=== PATIENT | female | born 1935 | race Caucasian/White ===

== ENCOUNTER 2017-07-16 09:21 | Inpatient (IN) | payer MEDICARE ==
[~2017-07-16] VITALS: Ht 175.3 cm; Wt 74.0 kg
[~2017-07-16 09:21] MED LIST: ALBU18HF INH; ASPI-515 PO; BUDE10.2 INH; GUAI5SYR PO; INSU100I18 SQ-INSULIN; LEVO500T47 PO
[2017-07-16 10:31] LABS: BASOPHILS # (AUTO) 0.01 x10^3/uL (0-0.1); BASOPHILS % (AUTO) 0 % (0-1); EOSINOPHILS # (AUTO) 0.11 x10^3/uL (0-0.4); EOSINOPHILS % (AUTO) 2 % (1-7); LYMPHOCYTES # (AUTO) 0.32 x10^3/uL (1-3.4); LYMPHOCYTES % (AUTO) 5 % (22-44); MD NO; MEAN CORPUSCULAR HEMOGLOBIN 31.1 pg (27.0-34.8); MEAN CORPUSCULAR HGB CONC 34.1 g/dL (32.4-35.8); MEAN CORPUSCULAR VOLUME 91.1 fL (80-100); MEAN PLATELET VOLUME 8.4 fL (7.4-10.4); MONOCYTES # (AUTO) 0.47 x10^3/uL (0.2-0.8); MONOCYTES % (AUTO) 7 % (2-9); NEUTROPHILS % (AUTO) 86 % (42-75); PLATELET COUNT 178 x10^3/uL (130-400); RED BLOOD COUNT 3.29 x10^6/uL (3.82-5.3); RED CELL DISTRIBUTION WIDTH 13.7 % (9.6-15.2)
[2017-07-16 10:33] LABS: INTERNATIONAL NORMALIZED RATIO 1.12 (0.93-1.1); PROTHROMBIN TIME 11.5 Seconds (9.6-11.5)
[2017-07-16 10:34] LABS: ALANINE AMINOTRANSFERASE 22 U/L (12-78); ALBUMIN 3.3 g/dL (3.4-5.0); ANION GAP 8 mmol/L (5-15); CALCIUM 8.2 mg/dL (8.5-10.1); CHLORIDE 103 mmol/L (98-107); CREATININE 6.67 mg/dL (0.55-1.02)
[2017-07-16 10:38] LABS: RAPID INFLUENZA A Negative (Negative); RAPID INFLUENZA B Negative (Negative)
[2017-07-16 10:38] LABS: ALKALINE PHOSPHATASE 66 U/L (45-117); BILIRUBIN,TOTAL 0.9 mg/dL (0.2-1.0); TOTAL PROTEIN 7.2 g/dL (6.4-8.2); TROPONIN I < 0.015 ng/mL (0.000-0.045)
[2017-07-16] MEDS ORDERED: CEFTRIAXONE PMX 1GM/50ML 50 ML IVPB ONE (11:00)
[2017-07-16] MEDS ORDERED: CEFTRIAXONE PMX 1GM/50ML 50 ML ONE (11:21)
[2017-07-16] MEDS ORDERED: NAPR220C2 PO (11:43)
[2017-07-16] MEDS ORDERED: PLEASE ENTER HEIGHT AND WEIGHT MC SCH (12:00)
[2017-07-16] MEDS ORDERED: ONDANSETRON 2MG/ML, 2ML IVPush PRN (13:00)
[2017-07-16] MEDS ORDERED: ACETAMINOPHEN 325 MG TABLET PO PRN (13:00)
[2017-07-16 14:00] VITALS: BP 141/71
[2017-07-16 14:32] VITALS: BP 141/71
[2017-07-16] MEDS: HEPARIN 5,000 UNITS/ML, 1ML SQ SCH (15:21)
[2017-07-16 16:22] LABS: TROPONIN I < 0.015 ng/mL (0.000-0.045)
[2017-07-16 18:34] VITALS: BP 122/64
[2017-07-17] MEDS: HEPARIN 5,000 UNITS/ML, 1ML SQ SCH ×3 (00:04→16:33)
[2017-07-17 00:49] VITALS: BP 151/69
[2017-07-17 06:14] LABS: BASOPHILS # (AUTO) 0.05 x10^3/uL (0-0.1); BASOPHILS % (AUTO) 1 % (0-1); EOSINOPHILS # (AUTO) 0.15 x10^3/uL (0-0.4); EOSINOPHILS % (AUTO) 3 % (1-7); LYMPHOCYTES # (AUTO) 0.36 x10^3/uL (1-3.4); LYMPHOCYTES % (AUTO) 7 % (22-44); MD NO; MEAN CORPUSCULAR HEMOGLOBIN 30.9 pg (27.0-34.8); MEAN CORPUSCULAR HGB CONC 34.4 g/dL (32.4-35.8); MEAN CORPUSCULAR VOLUME 89.9 fL (80-100); MEAN PLATELET VOLUME 8.1 fL (7.4-10.4); MONOCYTES # (AUTO) 0.46 x10^3/uL (0.2-0.8); MONOCYTES % (AUTO) 9 % (2-9); NEUTROPHILS # (AUTO) 4.36 x10^3/uL (1.8-6.8); NEUTROPHILS % (AUTO) 81 % (42-75); PLATELET COUNT 178 x10^3/uL (130-400); RED CELL DISTRIBUTION WIDTH 13.7 % (9.6-15.2)
[2017-07-17 06:29] LABS: CHLORIDE 101 mmol/L (98-107)
[2017-07-17 06:53] LABS: ALANINE AMINOTRANSFERASE 19 U/L (12-78); ALBUMIN 3.2 g/dL (3.4-5.0); ALKALINE PHOSPHATASE 62 U/L (45-117); ANION GAP 8 mmol/L (5-15); BILIRUBIN,TOTAL 0.7 mg/dL (0.2-1.0); CALCIUM 8.5 mg/dL (8.5-10.1); CREATININE 4.31 mg/dL (0.55-1.02); TOTAL PROTEIN 7.1 g/dL (6.4-8.2)
[2017-07-17 06:59] VITALS: BP 125/57
[2017-07-17 13:35] VITALS: BP 128/60
[2017-07-17] MEDS: DOCUSATE 100 MG CAPSULE PO PRN (16:32)
[2017-07-17 20:51] VITALS: BP 121/61
[2017-07-18 00:26] VITALS: BP 124/55
[2017-07-18] MEDS: HEPARIN 5,000 UNITS/ML, 1ML SQ SCH ×3 (00:57→17:40)
[2017-07-18 06:47] VITALS: BP 121/57
[2017-07-18 14:14] VITALS: BP 118/74
[2017-07-18] MEDS: DOCUSATE 100 MG CAPSULE PO PRN (15:45)
[2017-07-18 20:08] VITALS: BP 118/61
[2017-07-19] MEDS: HEPARIN 5,000 UNITS/ML, 1ML SQ SCH ×2 (00:10→08:41)
[2017-07-19 00:45] VITALS: BP 129/62
[2017-07-19 07:10] VITALS: BP 118/49
[2017-07-19 12:34] VITALS: BP 142/63
== END 2017-07-19 16:09 | DRG 682 ==
LOC: ED 10:20 → EDIP 11:19 → 4WST 13:45
PROVIDERS: ADMIT Hospitalist; ATTEND Internal Medicine
PROC: 5A1D70Z Performance of Urinary Filtration, Intermittent, Less than 6 Hours Per Day (ICD-10-PCS; 2017-07-16)
PROC: 5A1D70Z Performance of Urinary Filtration, Intermittent, Less than 6 Hours Per Day (ICD-10-PCS; principal; 2017-07-18)
DX: I12.0 Hypertensive chronic kidney disease with stage 5 chronic kidney disease or end stage renal disease (principal); N18.6 End stage renal disease; J81.1 Chronic pulmonary edema; J18.1 Lobar pneumonia, unspecified organism; E11.22 Type 2 diabetes mellitus with diabetic chronic kidney disease; E87.70 Fluid overload, unspecified; I48.2 Chronic atrial fibrillation; E44.1 Mild protein-calorie malnutrition; N25.0 Renal osteodystrophy; J44.0 Chronic obstructive pulmonary disease with (acute) lower respiratory infection; D63.1 Anemia in chronic kidney disease; E78.5 Hyperlipidemia, unspecified; K21.9 Gastro-esophageal reflux disease without esophagitis; R09.02 Hypoxemia; Z82.49 Family history of ischemic heart disease and other diseases of the circulatory system; Z87.891 Personal history of nicotine dependence; Z91.15 Patient's noncompliance with renal dialysis; Z91.19 Patient's noncompliance with other medical treatment and regimen; Z99.2 Dependence on renal dialysis; Z99.81 Dependence on supplemental oxygen; Z68.24 Body mass index [BMI] 24.0-24.9, adult
CPT/HCPCS: 36415; 71010; 80053; 83880; 84145; 84443; 84484; 85025; 85610; 85730; 86704; 86706; 87040; 87340; 87400; 93005; 93306; 99285; J0696; J1644

== ENCOUNTER 2017-08-13 14:35 | Emergency (ER) | payer MEDICARE ==
[~2017-08-13] VITALS: Ht 175.3 cm; Wt 77.1 kg
[~2017-08-13 14:35] MED LIST changes: +NAPR220C2 PO
[2017-08-13] MEDS ORDERED: IBUPROFEN 200 MG TABLET PO ONE (15:30)
[2017-08-13] MEDS ORDERED: IBUPROFEN 200 MG TABLET ONE (15:55)
[2017-08-13 17:41] VITALS: BP 138/60
== END 2017-08-13 17:44 | disposition home or self-care (01) ==
LOC: ED 17:38
DX: S16.1XXA Strain of muscle, fascia and tendon at neck level, initial encounter (principal); S80.01XA Contusion of right knee, initial encounter; E78.00 Pure hypercholesterolemia, unspecified; K21.9 Gastro-esophageal reflux disease without esophagitis; I48.91 Unspecified atrial fibrillation; Z90.49 Acquired absence of other specified parts of digestive tract; V49.88XA Car occupant (driver) (passenger) injured in other specified transport accidents, initial encounter; Y93.89 Activity, other specified; Y92.488 Other paved roadways as the place of occurrence of the external cause; Y99.8 Other external cause status
CPT/HCPCS: 72050; 72125; 99284

== ENCOUNTER 2018-01-01 22:28 | Inpatient (IN) | payer MEDICARE ==
[~2018-01-01] VITALS: Ht 175.3 cm; Wt 81.1 kg
[2018-01-01 23:38] LABS: BASOPHILS # (AUTO) 0.03 x10^3/uL (0-0.1); BASOPHILS % (AUTO) 1 % (0-1); EOSINOPHILS # (AUTO) 0.08 x10^3/uL (0-0.4); EOSINOPHILS % (AUTO) 2 % (1-7); LYMPHOCYTES # (AUTO) 0.44 x10^3/uL (1-3.4); LYMPHOCYTES % (AUTO) 11 % (22-44); MD NO; MEAN CORPUSCULAR HEMOGLOBIN 31.1 pg (27.0-34.8); MEAN CORPUSCULAR HGB CONC 33.8 g/dL (32.4-35.8); MEAN CORPUSCULAR VOLUME 91.9 fL (80-100); MEAN PLATELET VOLUME 8.3 fL (7.4-10.4); MONOCYTES # (AUTO) 0.41 x10^3/uL (0.2-0.8); MONOCYTES % (AUTO) 11 % (2-9); NEUTROPHILS % (AUTO) 75 % (42-75); PLATELET COUNT 128 x10^3/uL (130-400); RED BLOOD COUNT 3.53 x10^6/uL (3.82-5.3); RED CELL DISTRIBUTION WIDTH 15.8 % (9.6-15.2)
[2018-01-01 23:47] LABS: ALANINE AMINOTRANSFERASE 26 U/L (12-78); ALBUMIN 3.8 g/dL (3.4-5.0); ANION GAP 10 mmol/L (5-15); CALCIUM 8.4 mg/dL (8.5-10.1); CHLORIDE 107 mmol/L (98-107); CREATININE 6.05 mg/dL (0.55-1.02)
[2018-01-01 23:51] LABS: ALKALINE PHOSPHATASE 61 U/L (45-117); TOTAL PROTEIN 6.9 g/dL (6.4-8.2); TROPONIN I < 0.015 ng/mL (0.000-0.045)
[2018-01-01 23:57] LABS: BILIRUBIN,TOTAL 0.6 mg/dL (0.2-1.0)
[2018-01-01 23:59] LABS: INTERNATIONAL NORMALIZED RATIO 1.08 (0.93-1.1); PROTHROMBIN TIME 11.1 Seconds (9.6-11.5)
[2018-01-02] VITALS (8 sets, daily range): BP systolic 99–183; BP diastolic 59–103
[2018-01-02] MEDS ORDERED: ACETAMINOPHEN 325 MG TABLET PO PRN (02:30)
[2018-01-02] MEDS ORDERED: BISACODYL 10 MG SUPP PR PRN (02:30)
[2018-01-02] MEDS ORDERED: OXYcodone IR 5MG TABLET PO PRN (02:30)
[2018-01-02] MEDS ORDERED: ONDANSETRON ODT 4 MG PO PRN (02:30)
[2018-01-02] MEDS ORDERED: DOCUSATE 100 MG CAPSULE PO PRN (02:30)
[2018-01-02] MEDS ORDERED: hydrALAzine 20 MG/ML, 1ML IVPush PRN (02:30)
[2018-01-02] MEDS ORDERED: ONDANSETRON 2MG/ML, 2ML IVPush PRN (02:30)
[2018-01-02] MEDS ORDERED: POLYETHYLENE GLYCOL 17 GM PACKET PO PRN (02:30)
[2018-01-02] MEDS: INSULIN LISPRO 100 UNITS/ML, PEN SQ-INSULIN SCH ×5 (02:43→21:03)
[2018-01-02] MEDS: HEPARIN 5,000 UNITS/ML, 1ML SQ SCH ×3 (02:53→21:03)
[2018-01-02 03:23] LABS: FREE T4 (FREE THYROXINE) 1.08 ng/dL (0.76-1.46); THYROID STIMULATING HORMONE 2.4 mIU/L (0.358-3.740)
[2018-01-02 03:24] LABS: HEMOGLOBIN A1C 5.9 % (4.2-6.3)
[2018-01-02 05:58] LABS: TROPONIN I < 0.015 ng/mL (0.000-0.045)
[2018-01-02] MEDS: ASPIRIN 325 MG TABLET EC PO SCH (06:11)
[2018-01-02 11:38] LABS: TROPONIN I < 0.015 ng/mL (0.000-0.045)
[2018-01-03 00:29] VITALS: BP 109/53
[2018-01-03 05:11] LABS: BASOPHILS # (AUTO) 0.03 x10^3/uL (0-0.1); BASOPHILS % (AUTO) 1 % (0-1); EOSINOPHILS # (AUTO) 0.07 x10^3/uL (0-0.4); EOSINOPHILS % (AUTO) 2 % (1-7); LYMPHOCYTES # (AUTO) 0.39 x10^3/uL (1-3.4); LYMPHOCYTES % (AUTO) 9 % (22-44); MD NO; MEAN CORPUSCULAR HEMOGLOBIN 31.1 pg (27.0-34.8); MEAN CORPUSCULAR HGB CONC 33.7 g/dL (32.4-35.8); MEAN CORPUSCULAR VOLUME 92.3 fL (80-100); MEAN PLATELET VOLUME 8.4 fL (7.4-10.4); MONOCYTES # (AUTO) 0.41 x10^3/uL (0.2-0.8); MONOCYTES % (AUTO) 10 % (2-9); NEUTROPHILS # (AUTO) 3.35 x10^3/uL (1.8-6.8); NEUTROPHILS % (AUTO) 79 % (42-75); PLATELET COUNT 129 x10^3/uL (130-400); RED BLOOD COUNT 3.45 x10^6/uL (3.82-5.3); RED CELL DISTRIBUTION WIDTH 15.2 % (9.6-15.2)
[2018-01-03] MEDS: ASPIRIN 325 MG TABLET EC PO SCH (05:12)
[2018-01-03] MEDS: HEPARIN 5,000 UNITS/ML, 1ML SQ SCH ×2 (05:12→11:44)
[2018-01-03 05:17] LABS: ALBUMIN 3.5 g/dL (3.4-5.0); ANION GAP 8 mmol/L (5-15); CALCIUM 8.4 mg/dL (8.5-10.1); CHLORIDE 102 mmol/L (98-107); CHOLESTEROL, TOTAL 126 mg/dL (140-239); TRIGLYCERIDES 90 mg/dL (50-200); VLDL CHOLESTEROL 18 mg/dL (0-25)
[2018-01-03 05:24] LABS: % IRON SATURATION 18 % (20-55); ALANINE AMINOTRANSFERASE 20 U/L (12-78); ALKALINE PHOSPHATASE 59 U/L (45-117); BILIRUBIN,TOTAL 0.7 mg/dL (0.2-1.0); CHOL/HDL RATIO 2.7; CREATININE 3.75 mg/dL (0.55-1.02); HDL CHOL % 37 % (28-40); HDL CHOLESTEROL (DIRECT) 47 mg/dL (40-60); IRON LEVEL 36 mcg/dL (50-170); LDL CHOLESTEROL,CALCULATED 61 mg/dL (54-169); LDL/HDL RATIO 1.3 (0.5-3.0); TOTAL IRON BINDING CAPACITY 201 mcg/dL (250-450); TOTAL PROTEIN 6.5 g/dL (6.4-8.2)
[2018-01-03] MEDS: INSULIN LISPRO 100 UNITS/ML, PEN SQ-INSULIN SCH ×3 (07:00→16:00)
[2018-01-03 07:13] VITALS: BP 155/65
[2018-01-03 13:31] VITALS: BP 117/62
== END 2018-01-03 20:15 | disposition home or self-care (01) | DRG 640 ==
LOC: ED 23:59 → EDIP 01-02 01:59 → 5SO 01-02 02:04
PROVIDERS: ADMIT Internal Medicine; ATTEND Internal Medicine
PROC: 5A1D70Z Performance of Urinary Filtration, Intermittent, Less than 6 Hours Per Day (ICD-10-PCS; principal; 2018-01-02)
DX: E87.70 Fluid overload, unspecified (principal); N18.6 End stage renal disease; D68.69 Other thrombophilia; I12.0 Hypertensive chronic kidney disease with stage 5 chronic kidney disease or end stage renal disease; E87.1 Hypo-osmolality and hyponatremia; E11.22 Type 2 diabetes mellitus with diabetic chronic kidney disease; I48.91 Unspecified atrial fibrillation; K21.9 Gastro-esophageal reflux disease without esophagitis; Z91.15 Patient's noncompliance with renal dialysis; D63.1 Anemia in chronic kidney disease; E78.00 Pure hypercholesterolemia, unspecified; J44.9 Chronic obstructive pulmonary disease, unspecified; R07.2 Precordial pain; N25.0 Renal osteodystrophy; Z79.82 Long term (current) use of aspirin; Z87.891 Personal history of nicotine dependence; Z90.710 Acquired absence of both cervix and uterus; Z91.19 Patient's noncompliance with other medical treatment and regimen; Z99.2 Dependence on renal dialysis; Z99.81 Dependence on supplemental oxygen; Z90.49 Acquired absence of other specified parts of digestive tract; E11.40 Type 2 diabetes mellitus with diabetic neuropathy, unspecified
CPT/HCPCS: 36415; 71045; 80053; 80061; 82306; 82728; 82962; 83036; 83540; 83550; 83735; 83880; 83970; 84100; 84439; 84443; 84484; 84550; 85025; 85610; 85730; 93005; 99285; J1644; J0360

== ENCOUNTER 2018-01-06 10:43 | Inpatient (IN) | payer MEDICARE ==
[~2018-01-06] VITALS: Ht 175.3 cm; Wt 76.5 kg
[2018-01-06] MEDS ORDERED: ALBUTEROL/IPRATROPIUM 2.5MG/0.5MG, 3 ML NPPB SCH (12:30)
[2018-01-06] MEDS ORDERED: ALBUTEROL/IPRATROPIUM 2.5MG/0.5MG, 3 ML ONE (12:34)
[2018-01-06 13:02] LABS: BASOPHILS # (AUTO) 0.01 x10^3/uL (0-0.1); BASOPHILS % (AUTO) 0 % (0-1); EOSINOPHILS # (AUTO) 0.05 x10^3/uL (0-0.4); EOSINOPHILS % (AUTO) 1 % (1-7); LYMPHOCYTES # (AUTO) 0.32 x10^3/uL (1-3.4); LYMPHOCYTES % (AUTO) 7 % (22-44); MD NO; MEAN CORPUSCULAR HEMOGLOBIN 30.3 pg (27.0-34.8); MEAN CORPUSCULAR HGB CONC 33.1 g/dL (32.4-35.8); MEAN CORPUSCULAR VOLUME 91.3 fL (80-100); MEAN PLATELET VOLUME 8.5 fL (7.4-10.4); MONOCYTES # (AUTO) 0.38 x10^3/uL (0.2-0.8); MONOCYTES % (AUTO) 8 % (2-9); NEUTROPHILS # (AUTO) 3.94 x10^3/uL (1.8-6.8); NEUTROPHILS % (AUTO) 84 % (42-75); PLATELET COUNT 130 x10^3/uL (130-400); RED BLOOD COUNT 3.69 x10^6/uL (3.82-5.3); RED CELL DISTRIBUTION WIDTH 15.6 % (9.6-15.2)
[2018-01-06 13:12] LABS: ALBUMIN 3.9 g/dL (3.4-5.0); ANION GAP 7 mmol/L (5-15); CALCIUM 8.9 mg/dL (8.5-10.1); CHLORIDE 100 mmol/L (98-107)
[2018-01-06 13:17] LABS: CREATININE 4.37 mg/dL (0.55-1.02)
[2018-01-06] MEDS ORDERED: GUAIFENESIN/DM 200-20MG, 10ML UDC PO PRN (15:30)
[2018-01-06] MEDS ORDERED: ACETAMINOPHEN 325 MG TABLET PO PRN (15:30)
[2018-01-06] MEDS ORDERED: AZITHROMYCIN 500 MG TABLET PO ONE (15:30)
[2018-01-06] MEDS ORDERED: ONDANSETRON 2MG/ML, 2ML IVPush PRN (15:30)
[2018-01-06] MEDS ORDERED: GLUCAGON 1 MG IM PRN (15:30)
[2018-01-06] MEDS ORDERED: DEXTROSE 4 GM TAB.CHEW PO PRN (15:30)
[2018-01-06] MEDS ORDERED: LABETALOL 5MG/ML, 20ML IVPush PRN (15:30)
[2018-01-06] MEDS ORDERED: ONDANSETRON ODT 4 MG PO PRN (15:30)
[2018-01-06] MEDS ORDERED: DEXTROSE 50%, 50ML SYRINGE IVPush PRN (15:30)
[2018-01-06] MEDS ORDERED: TRAZODONE 50MG TABLET PO PRN (15:30)
[2018-01-06] MEDS: INSULIN LISPRO 100 UNITS/ML, PEN SQ-INSULIN SCH ×3 (16:00→22:52)
[2018-01-06] MEDS ORDERED: AZITHROMYCIN 500 MG TABLET ONE (17:20)
[2018-01-06 17:51] VITALS: BP 164/74
[2018-01-06 20:00] VITALS: BP 148/65
[2018-01-06] MEDS ORDERED: ALBUTEROL/IPRATROPIUM 2.5MG/0.5MG, 3 ML NPPB PRN (20:00)
[2018-01-06] MEDS: SODIUM CHLORIDE FLUSH 10ML SYR IVF SCH (22:15)
[2018-01-06] MEDS: methylPREDNISolone SOD SUCC 40 MG/ML IVPush SCH (22:15)
[2018-01-07 02:00] VITALS: BP 166/72
[2018-01-07] MEDS: ASPIRIN 325 MG TABLET EC PO SCH (05:13)
[2018-01-07 06:04] LABS: BASOPHILS % (AUTO) 0 % (0-1); EOSINOPHILS % (AUTO) 0 % (1-7); LYMPHOCYTES # (AUTO) 0.17 x10^3/uL (1-3.4); LYMPHOCYTES % (AUTO) 6 % (22-44); MD NO; MEAN CORPUSCULAR HEMOGLOBIN 30.2 pg (27.0-34.8); MEAN CORPUSCULAR HGB CONC 33.3 g/dL (32.4-35.8); MEAN CORPUSCULAR VOLUME 90.6 fL (80-100); MEAN PLATELET VOLUME 8.4 fL (7.4-10.4); MONOCYTES # (AUTO) 0.06 x10^3/uL (0.2-0.8); MONOCYTES % (AUTO) 2 % (2-9); NEUTROPHILS # (AUTO) 2.78 x10^3/uL (1.8-6.8); NEUTROPHILS % (AUTO) 92 % (42-75); PLATELET COUNT 137 x10^3/uL (130-400); RED BLOOD COUNT 3.62 x10^6/uL (3.82-5.3); RED CELL DISTRIBUTION WIDTH 15.5 % (9.6-15.2)
[2018-01-07 06:13] LABS: CALCIUM 9.1 mg/dL (8.5-10.1); CHLORIDE 101 mmol/L (98-107)
[2018-01-07 06:18] LABS: ALANINE AMINOTRANSFERASE 36 U/L (12-78); ALBUMIN 3.6 g/dL (3.4-5.0); ALKALINE PHOSPHATASE 66 U/L (45-117); ANION GAP 9 mmol/L (5-15); BILIRUBIN,TOTAL 0.7 mg/dL (0.2-1.0); CREATININE 5.02 mg/dL (0.55-1.02)
[2018-01-07 06:53] LABS: HEMOGLOBIN A1C 5.6 % (4.2-6.3)
[2018-01-07 07:40] VITALS: BP 139/66
[2018-01-07] MEDS: methylPREDNISolone SOD SUCC 40 MG/ML IVPush SCH ×2 (09:01→20:48)
[2018-01-07] MEDS: SODIUM CHLORIDE FLUSH 10ML SYR IVF SCH ×2 (09:02→20:48)
[2018-01-07] MEDS: INSULIN LISPRO 100 UNITS/ML, PEN SQ-INSULIN SCH ×4 (09:02→20:48)
[2018-01-07 15:09] VITALS: BP 130/63
[2018-01-07 19:16] VITALS: BP 129/62
[2018-01-08 02:32] VITALS: BP 149/69
[2018-01-08] MEDS: ASPIRIN 325 MG TABLET EC PO SCH (05:05)
[2018-01-08 07:01] VITALS: BP 159/67
[2018-01-08] MEDS: INSULIN LISPRO 100 UNITS/ML, PEN SQ-INSULIN SCH ×4 (07:58→20:45)
[2018-01-08] MEDS: SODIUM CHLORIDE FLUSH 10ML SYR IVF SCH ×2 (07:58→20:44)
[2018-01-08] MEDS: methylPREDNISolone SOD SUCC 40 MG/ML IVPush SCH ×2 (07:58→20:44)
[2018-01-08] MEDS: AZITHROMYCIN 500 MG TABLET PO SCH (11:34)
[2018-01-08 11:43] LABS: ALBUMIN 3.6 g/dL (3.4-5.0); ANION GAP 10 mmol/L (5-15); CALCIUM 8.2 mg/dL (8.5-10.1); CHLORIDE 98 mmol/L (98-107)
[2018-01-08 11:47] LABS: ALANINE AMINOTRANSFERASE 36 U/L (12-78); ALKALINE PHOSPHATASE 61 U/L (45-117); BILIRUBIN,TOTAL 0.4 mg/dL (0.2-1.0); CREATININE 6.19 mg/dL (0.55-1.02); TOTAL PROTEIN 6.6 g/dL (6.4-8.2)
[2018-01-08 12:12] VITALS: BP 156/65
[2018-01-08 12:16] LABS: MEAN CORPUSCULAR HEMOGLOBIN 30.3 pg (27.0-34.8); MEAN CORPUSCULAR HGB CONC 33.2 g/dL (32.4-35.8); MEAN CORPUSCULAR VOLUME 91.1 fL (80-100); MEAN PLATELET VOLUME 8.8 fL (7.4-10.4); PLATELET COUNT 152 x10^3/uL (130-400); RED BLOOD COUNT 3.49 x10^6/uL (3.82-5.3); RED CELL DISTRIBUTION WIDTH 15.4 % (9.6-15.2)
[2018-01-08 12:26] LABS: BASOPHILS % (AUTO) 0 % (0-1); EOSINOPHILS % (AUTO) 0 % (1-7); LYMPHOCYTES # (AUTO) 0.17 x10^3/uL (1-3.4); LYMPHOCYTES % (AUTO) 3 % (22-44); MD SCAN; MONOCYTES # (AUTO) 0.18 x10^3/uL (0.2-0.8); MONOCYTES % (AUTO) 3 % (2-9); NEUTROPHILS # (AUTO) 6.14 x10^3/uL (1.8-6.8); NEUTROPHILS % (AUTO) 95 % (42-75)
[2018-01-08 19:59] VITALS: BP 158/73
[2018-01-09 01:19] VITALS: BP 156/74
[2018-01-09] MEDS: ASPIRIN 325 MG TABLET EC PO SCH (05:33)
[2018-01-09 08:56] LABS: ANION GAP 11 mmol/L (5-15); CALCIUM 8.2 mg/dL (8.5-10.1); CHLORIDE 99 mmol/L (98-107); CREATININE 6.55 mg/dL (0.55-1.02)
[2018-01-09 09:20] VITALS: BP 145/76
[2018-01-09] MEDS: methylPREDNISolone SOD SUCC 40 MG/ML IVPush SCH ×2 (09:40→20:51)
[2018-01-09] MEDS: AZITHROMYCIN 500 MG TABLET PO SCH (09:40)
[2018-01-09] MEDS: INSULIN LISPRO 100 UNITS/ML, PEN SQ-INSULIN SCH ×4 (09:40→20:52)
[2018-01-09] MEDS: SODIUM CHLORIDE FLUSH 10ML SYR IVF SCH ×2 (09:41→20:52)
[2018-01-09] MEDS ORDERED: ARANESP 100 MCG/ML **ESRD SQ SCH (11:00)
[2018-01-09] MEDS: CALCIUM ACETATE 667 MG CAPSULE PO SCH ×3 (12:24→20:52)
[2018-01-09 13:55] VITALS: BP 129/71
[2018-01-09] MEDS ORDERED: LIDOCAINE/PRILOCAINE CRM W/TEG 5GM TP ONE (17:30)
[2018-01-09 19:32] VITALS: BP 146/76
[2018-01-09 21:00] VITALS: BP 152/68
[2018-01-10 00:37] VITALS: BP 166/75
[2018-01-10] MEDS: ASPIRIN 325 MG TABLET EC PO SCH (05:27)
[2018-01-10 07:27] VITALS: BP 133/74
[2018-01-10] MEDS: CALCIUM ACETATE 667 MG CAPSULE PO SCH ×3 (08:31→21:13)
[2018-01-10] MEDS: methylPREDNISolone SOD SUCC 40 MG/ML IVPush SCH (08:31)
[2018-01-10] MEDS: AZITHROMYCIN 500 MG TABLET PO SCH (08:31)
[2018-01-10] MEDS: SODIUM CHLORIDE FLUSH 10ML SYR IVF SCH ×2 (08:32→21:00)
[2018-01-10] MEDS: INSULIN LISPRO 100 UNITS/ML, PEN SQ-INSULIN SCH ×4 (08:34→21:13)
[2018-01-10 14:29] VITALS: BP 157/80
[2018-01-10 20:36] VITALS: BP 164/84
[2018-01-11 00:24] VITALS: BP 177/68
[2018-01-11] MEDS: ASPIRIN 325 MG TABLET EC PO SCH (06:31)
[2018-01-11] MEDS: INSULIN LISPRO 100 UNITS/ML, PEN SQ-INSULIN SCH ×2 (07:00→12:15)
[2018-01-11 08:01] VITALS: BP 170/76
[2018-01-11] MEDS: AZITHROMYCIN 500 MG TABLET PO SCH (08:08)
[2018-01-11] MEDS: CALCIUM ACETATE 667 MG CAPSULE PO SCH (08:09)
[2018-01-11] MEDS: SODIUM CHLORIDE FLUSH 10ML SYR IVF SCH (08:09)
[2018-01-11] MEDS ORDERED: AZIT500T5 PO (11:55)
[2018-01-11] MEDS ORDERED: ASPI-650 PO (11:55)
[2018-01-11] MEDS ORDERED: PRED20TA PO (11:55)
[2018-01-11] MEDS ORDERED: IPRA3AMP INH (11:55)
[2018-01-11] MEDS ORDERED: CALC667C PO (11:55)
[2018-01-11 13:30] VITALS: BP 168/77
== END 2018-01-11 17:00 | disposition home or self-care (01) | DRG 193 ==
LOC: ED 14:36 → EDIP 14:44 → 3NE 15:11 → 4EST 15:27 → 4WST 18:28
PROVIDERS: ADMIT Internal Medicine; ATTEND Internal Medicine
PROC: 5A1D70Z Performance of Urinary Filtration, Intermittent, Less than 6 Hours Per Day (ICD-10-PCS; principal; 2018-01-09)
DX: J15.9 Unspecified bacterial pneumonia (principal); N18.6 End stage renal disease; E87.1 Hypo-osmolality and hyponatremia; J44.0 Chronic obstructive pulmonary disease with (acute) lower respiratory infection; J44.1 Chronic obstructive pulmonary disease with (acute) exacerbation; J96.10 Chronic respiratory failure, unspecified whether with hypoxia or hypercapnia; R62.7 Adult failure to thrive; D63.8 Anemia in other chronic diseases classified elsewhere; E78.5 Hyperlipidemia, unspecified; K21.9 Gastro-esophageal reflux disease without esophagitis; D63.1 Anemia in chronic kidney disease; E11.22 Type 2 diabetes mellitus with diabetic chronic kidney disease; E11.42 Type 2 diabetes mellitus with diabetic polyneuropathy; E78.00 Pure hypercholesterolemia, unspecified; I48.2 Chronic atrial fibrillation; Z82.49 Family history of ischemic heart disease and other diseases of the circulatory system; Z99.2 Dependence on renal dialysis; Z99.81 Dependence on supplemental oxygen; Z90.710 Acquired absence of both cervix and uterus; Z90.49 Acquired absence of other specified parts of digestive tract
CPT/HCPCS: 36415; 71046; 80048; 80053; 82040; 82962; 83036; 83735; 83880; 84100; 85025; 87040; 93005; 94640; 99285; J0882; J2405; J7620; J1815; J2920; J7512

== ENCOUNTER 2018-08-10 18:29 | Inpatient (IN) | payer MEDICARE ==
[~2018-08-10] VITALS: Ht 175.3 cm; Wt 73.8 kg
[~2018-08-10 18:29] MED LIST changes: +ASPI-650 PO; +AZIT500T5 PO; +CALC667C PO; +IPRA3AMP30 INH; +PRED20TA PO
--- NOTE | 2018-08-10 18:59 | NUR ---
FIRST CONTACT WITH PT: PRESENTS TO ED WITH C/O SOB X 1 MONTH; DENIES HX OF COPD AND/OR ASTHMA. PT. REPORTS "I FEEL LIKE I HAVE NO ENERGY." PT. IS A DIALYSIS PT. WITH FISTULA TO LEFT ARM; SHE STATES "I DON'T TAKE ANY MEDICATIONS WHEN I AM AT HOME BECAUSE I AM ALLERGIC TO ALL GENERIC MEDICATIONS AND THE DR.'S DON'T LISTEN. SON AT BS FOR SUPPORT. CHEST X-RAY HAS BEEN COMPLETED, LAB AT BS FOR BLOOD DRAW. PT. PLACED ON CONTINUOUS PULSE OX, B/P, AND HEART MONITORS. CALL LIGHT IN REACH. DR. DURAN AT BS TO EVAL PT. AT THIS TIME.
[2018-08-10 19:13] LABS: BASOPHILS # (AUTO) 0.02 x10^3/uL (0-0.1); BASOPHILS % (AUTO) 0 % (0-1); EOSINOPHILS # (AUTO) 0.07 x10^3/uL (0-0.4); EOSINOPHILS % (AUTO) 1 % (1-7); LYMPHOCYTES # (AUTO) 0.45 x10^3/uL (1-3.4); LYMPHOCYTES % (AUTO) 9 % (22-44); MD NO; MEAN CORPUSCULAR HEMOGLOBIN 29.3 pg (27.0-34.8); MEAN CORPUSCULAR VOLUME 88.9 fL (80-100); MEAN PLATELET VOLUME 8.6 fL (7.4-10.4); MONOCYTES # (AUTO) 0.36 x10^3/uL (0.2-0.8); MONOCYTES % (AUTO) 7 % (2-9); NEUTROPHILS # (AUTO) 4.34 x10^3/uL (1.8-6.8); NEUTROPHILS % (AUTO) 83 % (42-75); PLATELET COUNT 173 x10^3/uL (130-400); RED BLOOD COUNT 4.11 x10^6/uL (3.82-5.3); RED CELL DISTRIBUTION WIDTH 16.1 % (9.6-15.2)
[2018-08-10 19:20] LABS: ALANINE AMINOTRANSFERASE 43 U/L (12-78); ALBUMIN 3.6 g/dL (3.4-5.0); ANION GAP 8 mmol/L (5-15); CALCIUM 8.5 mg/dL (8.5-10.1); CHLORIDE 106 mmol/L (98-107); CREATININE 5.94 mg/dL (0.55-1.02)
[2018-08-10] MEDS ORDERED: FUROSEMIDE 40 MG/4 ML IVPush ONE (19:30)
[2018-08-10] MEDS ORDERED: SODIUM CHLORIDE FLUSH 10ML SYR IVF ONE (19:30)
[2018-08-10] MEDS ORDERED: FUROSEMIDE 40 MG/4 ML ONE (19:35)
[2018-08-10 19:36] LABS: ALKALINE PHOSPHATASE 68 U/L (45-117); BILIRUBIN,TOTAL 0.7 mg/dL (0.2-1.0); TOTAL PROTEIN 6.8 g/dL (6.4-8.2)
--- NOTE | 2018-08-10 19:47 | NUR ---
PT. SON LEAVING ED AT THIS TIME. PT. SON ALSO REPORTED TO THIS RN THAT PT. DOESN'T TAKE ANY MEDICAIONS AT HOME. IV WAS ESTABLISHED AND PT. MEDCIATED PER SEP. PT. ASSISTED TO BS COMMODE FOR UA AT THIS TIME.
[2018-08-10] MEDS ORDERED: PLEASE ENTER WEIGHT MC SCH (20:00)
--- NOTE | 2018-08-10 20:01 | NUR ---
[facility] PT. ABLE TO VOID 100ML OF CLEAR YELLOW URINE; CLEAN CATCH URINE SAMPLE SENT TO LAB. ALL MONITORS REPLACED. PT. EDUCATED ON USE OF CALL LIGHT. ALL SAFETY MEASRUES OBSERVED.
[2018-08-10 20:39] LABS: MICROSCOPIC AUTO
[2018-08-10 20:41] LABS: CULTURE INDICATED? YES
[2018-08-10] MEDS ORDERED: CEFTRIAXONE PMX 1GM/50ML 50 ML ONE (21:18)
--- NOTE | 2018-08-10 21:26 | NUR ---
IV ABX HUNG PER ORDER; PER DR. DURAN NO BLOOD CULTURES NEEDED PRIOR. PT. ASSISTED TO REPOSITION ON GURNEY FOR COMFORT. DENIES OTHER NEEDS AT THIS TIME. CALL LIGHT REMAIN IN REACH. PT. HAS TV ON. ALL SAFETY MEASUERS OBSERVED.
[2018-08-10] MEDS ORDERED: CEFTRIAXONE PMX 1GM/50ML 50 ML IV ONE (21:30)
--- NOTE | 2018-08-10 21:54 | NUR ---
REPORT TO FIDEL CACERES. FLOOR READY FOR PT. TRANSPORT.
[2018-08-10 22:08] VITALS: BP_SYST 167; BP_SYST 170; BP_DIAS 74; BP_DIAS 75
[2018-08-10] MEDS ORDERED: ACETAMINOPHEN 325 MG TABLET PO PRN (22:30)
[2018-08-10] MEDS ORDERED: ONDANSETRON ODT 4 MG PO PRN (22:30)
[2018-08-10] MEDS ORDERED: hydrALAzine 20 MG/ML, 1ML IVPush PRN (22:30)
[2018-08-10] MEDS ORDERED: GABAPENTIN 300 MG CAPSULE PO PRN (22:30)
[2018-08-10] MEDS ORDERED: DOCUSATE 100 MG CAPSULE PO PRN (22:30)
[2018-08-10] MEDS ORDERED: DIPHENHYDRAMINE 25 MG CAPSULE PO PRN (22:30)
[2018-08-10] MEDS ORDERED: LIDODERM 5% PATCH TD PRN (22:30)
[2018-08-11 01:13] VITALS: BP 156/69
[2018-08-11 05:34] LABS: BASOPHILS # (AUTO) 0.02 x10^3/uL (0-0.1); BASOPHILS % (AUTO) 1 % (0-1); EOSINOPHILS # (AUTO) 0.06 x10^3/uL (0-0.4); EOSINOPHILS % (AUTO) 2 % (1-7); LYMPHOCYTES # (AUTO) 0.42 x10^3/uL (1-3.4); LYMPHOCYTES % (AUTO) 11 % (22-44); MD NO; MEAN CORPUSCULAR HEMOGLOBIN 30.2 pg (27.0-34.8); MEAN CORPUSCULAR HGB CONC 33.8 g/dL (32.4-35.8); MEAN CORPUSCULAR VOLUME 89.4 fL (80-100); MEAN PLATELET VOLUME 8.4 fL (7.4-10.4); MONOCYTES # (AUTO) 0.29 x10^3/uL (0.2-0.8); MONOCYTES % (AUTO) 8 % (2-9); NEUTROPHILS # (AUTO) 2.99 x10^3/uL (1.8-6.8); NEUTROPHILS % (AUTO) 79 % (42-75); PLATELET COUNT 141 x10^3/uL (130-400); RED BLOOD COUNT 3.73 x10^6/uL (3.82-5.3); RED CELL DISTRIBUTION WIDTH 16.1 % (9.6-15.2)
[2018-08-11 05:45] LABS: ANION GAP 10 mmol/L (5-15); CALCIUM 8.3 mg/dL (8.5-10.1); CHLORIDE 106 mmol/L (98-107)
[2018-08-11 07:04] VITALS: BP 146/71
[2018-08-11] MEDS ORDERED: FUROSEMIDE 40 MG/4 ML IV SCH (07:30)
[2018-08-11 11:15] LABS: HEMOGLOBIN A1C 5.6 % (4.2-6.3)
[2018-08-11] MEDS: HEPARIN 5,000 UNITS/ML, 1ML SQ SCH ×2 (11:44→19:36)
[2018-08-11 12:05] VITALS: BP 126/70
[2018-08-11 18:30] VITALS: BP 132/64
[2018-08-11] MEDS ORDERED: CEFTRIAXONE PMX 1GM/50ML 50 ML IV SCH (21:30)
[2018-08-12 01:39] VITALS: BP 142/67
[2018-08-12] MEDS: HEPARIN 5,000 UNITS/ML, 1ML SQ SCH ×3 (03:17→22:12)
[2018-08-12 06:07] LABS: ALBUMIN 3.1 g/dL (3.4-5.0); ANION GAP 7 mmol/L (5-15); CALCIUM 8.2 mg/dL (8.5-10.1); CHLORIDE 107 mmol/L (98-107); CREATININE 4.17 mg/dL (0.55-1.02)
[2018-08-12 07:07] VITALS: BP 149/67
[2018-08-12] MEDS ORDERED: ERGOCALCIFEROL 50,000 UNIT CAPSULE PO SCH (10:30)
[2018-08-12 14:00] VITALS: BP 133/70
[2018-08-12] MEDS: CALCITRIOL 0.25 MCG CAPSULE PO SCH (14:17)
[2018-08-12 15:59] VITALS: BP 137/64
[2018-08-12 18:30] VITALS: BP 133/59
[2018-08-12 18:38] VITALS: BP 103/55
[2018-08-13 01:48] VITALS: BP 146/58
[2018-08-13 05:57] LABS: ANION GAP 7 mmol/L (5-15); CALCIUM 8.9 mg/dL (8.5-10.1); CHLORIDE 104 mmol/L (98-107); CREATININE 3.62 mg/dL (0.55-1.02)
[2018-08-13] MEDS: HEPARIN 5,000 UNITS/ML, 1ML SQ SCH ×3 (06:08→21:48)
[2018-08-13 08:36] VITALS: BP 151/69
[2018-08-13 15:06] LABS: INTERNATIONAL NORMALIZED RATIO 1.08 (0.93-1.1); PROTHROMBIN TIME 11.4 Seconds (9.6-11.5)
[2018-08-13 15:42] VITALS: BP 160/73
[2018-08-13] MEDS ORDERED: WARFARIN 5 MG TABLET PO-COUM ONE (18:00)
[2018-08-13 20:11] VITALS: BP 144/70
[2018-08-14 02:18] VITALS: BP 147/60
[2018-08-14 05:11] LABS: INTERNATIONAL NORMALIZED RATIO 1.08 (0.93-1.1); PROTHROMBIN TIME 11.4 Seconds (9.6-11.5)
[2018-08-14] MEDS: HEPARIN 5,000 UNITS/ML, 1ML SQ SCH ×2 (05:40→14:00)
[2018-08-14] MEDS ORDERED: METOPROLOL SUCCINATE 25 MG TAB.ER.24H PO SCH (06:00)
[2018-08-14 06:54] VITALS: BP 161/61
[2018-08-14] MEDS ORDERED: CALC0.25 PO (11:37)
[2018-08-14] MEDS ORDERED: HEPA50002 SQ (11:37)
[2018-08-14] MEDS ORDERED: DOCU-131 PO (11:37)
[2018-08-14] MEDS ORDERED: METO25TA91 PO (11:37)
[2018-08-14] MEDS ORDERED: ERGO500017 PO (11:37)
[2018-08-14] MEDS ORDERED: DIPH25CA61 PO (11:37)
[2018-08-14] MEDS ORDERED: LIDO700A20 TD (11:37)
[2018-08-14] MEDS ORDERED: WARF5TAB PO-COUM (11:37)
[2018-08-14] MEDS ORDERED: ONDA4TAB13 PO (11:37)
[2018-08-14] MEDS ORDERED: ACET325T14 PO (11:37)
[2018-08-14] MEDS: CALCITRIOL 0.25 MCG CAPSULE PO SCH (11:44)
[2018-08-14 13:34] VITALS: BP 135/60
[2018-08-14] MEDS ORDERED: WARFARIN 5 MG TABLET PO-COUM ONE (18:00)
== END 2018-08-14 17:21 | DRG 291 ==
LOC: ED 20:01 → 4WST 21:32 → 4EST 08-14 06:56
PROVIDERS: ADMIT Internal Medicine; ATTEND Internal Medicine
PROC: 5A1D70Z Performance of Urinary Filtration, Intermittent, Less than 6 Hours Per Day (ICD-10-PCS; 2018-08-11)
PROC: 5A1D70Z Performance of Urinary Filtration, Intermittent, Less than 6 Hours Per Day (ICD-10-PCS; 2018-08-12)
PROC: 5A1D70Z Performance of Urinary Filtration, Intermittent, Less than 6 Hours Per Day (ICD-10-PCS; principal; 2018-08-14)
DX: I13.2 Hypertensive heart and chronic kidney disease with heart failure and with stage 5 chronic kidney disease, or end stage renal disease (principal); I50.43 Acute on chronic combined systolic (congestive) and diastolic (congestive) heart failure; N18.6 End stage renal disease; J96.10 Chronic respiratory failure, unspecified whether with hypoxia or hypercapnia; D68.69 Other thrombophilia; Z88.8 Allergy status to other drugs, medicaments and biological substances; D63.1 Anemia in chronic kidney disease; E11.21 Type 2 diabetes mellitus with diabetic nephropathy; E11.22 Type 2 diabetes mellitus with diabetic chronic kidney disease; E11.40 Type 2 diabetes mellitus with diabetic neuropathy, unspecified; E11.69 Type 2 diabetes mellitus with other specified complication; E78.00 Pure hypercholesterolemia, unspecified; E78.5 Hyperlipidemia, unspecified; I35.0 Nonrheumatic aortic (valve) stenosis; I48.2 Chronic atrial fibrillation; J06.9 Acute upper respiratory infection, unspecified; J44.9 Chronic obstructive pulmonary disease, unspecified; K21.9 Gastro-esophageal reflux disease without esophagitis; N30.90 Cystitis, unspecified without hematuria; Z79.01 Long term (current) use of anticoagulants; Z79.84 Long term (current) use of oral hypoglycemic drugs; Z82.49 Family history of ischemic heart disease and other diseases of the circulatory system; Z87.891 Personal history of nicotine dependence; Z90.710 Acquired absence of both cervix and uterus; Z91.15 Patient's noncompliance with renal dialysis; Z99.2 Dependence on renal dialysis; Z99.81 Dependence on supplemental oxygen; Z90.49 Acquired absence of other specified parts of digestive tract
CPT/HCPCS: 36415; 71045; 80048; 80053; 80069; 81001; 82306; 83036; 83605; 83880; 83970; 84484; 85025; 85610; 86704; 86706; 87086; 87340; 93005; 93306; 96365; 96375; G0378; J0696; J1644; J1940

== ENCOUNTER → 2019-01-12 | Outpatient (CLI) | payer MEDICARE ==
[~2019-01-12] MED LIST changes: +ACET325T14 PO; +CALC0.25 PO; +DIPH25CA61 PO; +DOCU-131 PO; +ERGO500017 PO; +HEPA50002 SQ; +LIDO700A20 TD; +METO25TA91 PO; +ONDA4TAB13 PO; +WARF5TAB PO-COUM
== END | disposition home or self-care (01) ==
LOC: WOUND 13:53
PROVIDERS: ATTEND Nurse Practitioner Family
DX: L97.321 Non-pressure chronic ulcer of left ankle limited to breakdown of skin (principal); L97.811 Non-pressure chronic ulcer of other part of right lower leg limited to breakdown of skin; I12.0 Hypertensive chronic kidney disease with stage 5 chronic kidney disease or end stage renal disease; N18.6 End stage renal disease; J44.9 Chronic obstructive pulmonary disease, unspecified; M25.572 Pain in left ankle and joints of left foot; I48.91 Unspecified atrial fibrillation; M16.0 Bilateral primary osteoarthritis of hip; Z99.81 Dependence on supplemental oxygen; Z87.891 Personal history of nicotine dependence; M79.89 Other specified soft tissue disorders
CPT/HCPCS: 97597; G0463

== ENCOUNTER → 2019-01-26 | Outpatient (CLI) | payer MEDICARE | END | disposition home or self-care (01) | LOC: WOUND 08:52 | PROVIDERS: ATTEND Internal Medicine Infectious Disease | DX: L97.321 Non-pressure chronic ulcer of left ankle limited to breakdown of skin (principal); L97.811 Non-pressure chronic ulcer of other part of right lower leg limited to breakdown of skin; L97.222 Non-pressure chronic ulcer of left calf with fat layer exposed; I12.0 Hypertensive chronic kidney disease with stage 5 chronic kidney disease or end stage renal disease; N18.6 End stage renal disease; J44.9 Chronic obstructive pulmonary disease, unspecified; M25.572 Pain in left ankle and joints of left foot; I48.91 Unspecified atrial fibrillation; M16.0 Bilateral primary osteoarthritis of hip; Z99.81 Dependence on supplemental oxygen; Z87.891 Personal history of nicotine dependence; M79.89 Other specified soft tissue disorders | CPT/HCPCS: 97597 ==

== ENCOUNTER 2019-02-02 11:21 | Outpatient (CLI) | payer MEDICARE | END 2019-02-02 23:59 | disposition home or self-care (01) | LOC: WOUND 11:21 | PROVIDERS: ATTEND Nurse Practitioner Family | DX: L97.222 Non-pressure chronic ulcer of left calf with fat layer exposed (principal); L97.321 Non-pressure chronic ulcer of left ankle limited to breakdown of skin; L97.811 Non-pressure chronic ulcer of other part of right lower leg limited to breakdown of skin; I12.0 Hypertensive chronic kidney disease with stage 5 chronic kidney disease or end stage renal disease; N18.6 End stage renal disease; J44.9 Chronic obstructive pulmonary disease, unspecified; M25.572 Pain in left ankle and joints of left foot; I48.91 Unspecified atrial fibrillation; M16.0 Bilateral primary osteoarthritis of hip; M79.89 Other specified soft tissue disorders; Z99.81 Dependence on supplemental oxygen; Z87.891 Personal history of nicotine dependence | CPT/HCPCS: 97597 ==

== ENCOUNTER 2019-02-23 09:58 | Outpatient (CLI) | payer MEDICARE | END 2019-02-23 23:59 | disposition home or self-care (01) | LOC: CFH 09:58 | PROVIDERS: ATTEND Internal Medicine Cardiovascular Disease | DX: J90 Pleural effusion, not elsewhere classified (principal); I27.20 Pulmonary hypertension, unspecified; I48.0 Paroxysmal atrial fibrillation; I10 Essential (primary) hypertension | CPT/HCPCS: 71046 ==

== ENCOUNTER 2019-03-02 09:52 | Outpatient (CLI) | payer MEDICARE | END 2019-03-02 23:59 | disposition home or self-care (01) | LOC: WOUND 09:52 | PROVIDERS: ATTEND Nurse Practitioner Family | DX: L97.222 Non-pressure chronic ulcer of left calf with fat layer exposed (principal); L97.321 Non-pressure chronic ulcer of left ankle limited to breakdown of skin; L97.811 Non-pressure chronic ulcer of other part of right lower leg limited to breakdown of skin; I12.0 Hypertensive chronic kidney disease with stage 5 chronic kidney disease or end stage renal disease; N18.6 End stage renal disease; J44.9 Chronic obstructive pulmonary disease, unspecified; M25.572 Pain in left ankle and joints of left foot; I48.91 Unspecified atrial fibrillation; M16.0 Bilateral primary osteoarthritis of hip; M79.89 Other specified soft tissue disorders; Z99.81 Dependence on supplemental oxygen; Z87.891 Personal history of nicotine dependence | CPT/HCPCS: 97597; G0463 ==

== ENCOUNTER 2019-06-01 10:37 | Outpatient (CLI) | payer MEDICARE ==
[~2019-06-01 10:37] MED LIST changes: +AZIT500T10 PO; -AZIT500T5 PO
== END 2019-06-01 23:59 | disposition home or self-care (01) ==
LOC: CFH 10:37
PROVIDERS: ATTEND Internal Medicine Cardiovascular Disease
DX: J90 Pleural effusion, not elsewhere classified (principal); J98.11 Atelectasis; I48.0 Paroxysmal atrial fibrillation; E11.9 Type 2 diabetes mellitus without complications; Z87.891 Personal history of nicotine dependence
CPT/HCPCS: 71046

== ENCOUNTER 2019-06-07 10:19 | Inpatient (IN) | payer MEDICARE ==
[~2019-06-07] VITALS: Ht 162.6 cm; Wt 69.1 kg
--- NOTE | 2019-06-07 10:30 | NUR ---
G[facility] REM. C/O SOB. Patient states she had an xray done at Dr. Still's office on Friday that showed "fluid pushing on my lungs". Patient states, "my phone wasn't working and they weren't able to get in touch with me to schedule a time to have it drained". SOB has gotten progressively worse over the week. A&Ox4, but weak and slow to respond. Had dialysis on Friday. States she takes no medications at home. EKG done. IV started. Placed on NIBP, pulse ox and delicate fabrics presser. Will continue to monitor.
[2019-06-07] MEDS ORDERED: LIDOCAINE 1%, 10ML ONE (11:14)
[2019-06-07] MEDS ORDERED: FUROSEMIDE 40 MG/4 ML IV ONE (11:30)
[2019-06-07] MEDS ORDERED: SODIUM CHLORIDE FLUSH 10ML SYR IVF ONE (11:30)
[2019-06-07] MEDS ORDERED: FUROSEMIDE 40 MG/4 ML ONE (11:34)
[2019-06-07 11:54] LABS: BASOPHILS # (AUTO) 0.03 x10^3/uL (0-0.1); BASOPHILS % (AUTO) 1 % (0-1); EOSINOPHILS # (AUTO) 0.07 x10^3/uL (0-0.4); EOSINOPHILS % (AUTO) 2 % (1-7); LYMPHOCYTES # (AUTO) 0.36 x10^3/uL (1-3.4); LYMPHOCYTES % (AUTO) 9 % (22-44); MD NO; MEAN CORPUSCULAR HEMOGLOBIN 31.2 pg (27.0-34.8); MEAN CORPUSCULAR HGB CONC 32.9 g/dL (32.4-35.8); MEAN CORPUSCULAR VOLUME 94.9 fL (80-100); MONOCYTES # (AUTO) 0.25 x10^3/uL (0.2-0.8); MONOCYTES % (AUTO) 6 % (2-9); NEUTROPHILS # (AUTO) 3.38 x10^3/uL (1.8-6.8); NEUTROPHILS % (AUTO) 83 % (42-75); PLATELET COUNT 142 x10^3/uL (130-400); RED BLOOD COUNT 3.81 x10^6/uL (3.82-5.3); RED CELL DISTRIBUTION WIDTH 15.2 % (9.6-15.2)
[2019-06-07 12:08] LABS: ALBUMIN 3.8 g/dL (3.4-5.0); ANION GAP 7 mmol/L (5-15); CALCIUM 9.1 mg/dL (8.5-10.1); CHLORIDE 104 mmol/L (98-107)
[2019-06-07 12:15] LABS: ALANINE AMINOTRANSFERASE 17 U/L (12-78); ALKALINE PHOSPHATASE 52 U/L (45-117); BILIRUBIN,TOTAL 0.7 mg/dL (0.2-1.0); TOTAL PROTEIN 7.1 g/dL (6.4-8.2); TROPONIN I < 0.015 ng/mL (0.000-0.045)
--- NOTE | 2019-06-07 12:22 | NUR ---
Back from IR. Clement admin.
--- NOTE | 2019-06-07 12:59 | NUR ---
Resting in [facility]. VSS. No needs.
--- NOTE | 2019-06-07 13:30 | NUR ---
Provided with crackers.
--- NOTE | 2019-06-07 13:45 | NUR ---
Patient to CT.
[2019-06-07] MEDS ORDERED: OMNIPAQUE 350 MG/ML, 100ML BOTTLE ONE (14:05)
--- NOTE | 2019-06-07 14:20 | NUR ---
TASK RN: PT RESTING SUPINE IN GURNEY W EYES CLOSED. EVEN/REGULAR RESPIRATIONS NOTED. SPO2 100% ON 2L BY NC, O2 OFF AT THIS TIME FOR RA TRIAL. AWAITING CT RESULTS.
--- NOTE | 2019-06-07 14:41 | NUR ---
TASK RN: RA 89%, PT PLACED ON 2L BY NC WHICH PT STATES 'I NEED SOMETIMES BECAUSE I GET SHORT OF BREATH". SPO2 TO 94%, RR WNL
--- NOTE | 2019-06-07 15:30 | NUR ---
Resting in [facility]. No needs.
[2019-06-07] MEDS ORDERED: LABETALOL 5MG/ML, 20ML IVPush PRN (16:00)
[2019-06-07] MEDS ORDERED: hydrALAzine 20 MG/ML, 1ML IVPush PRN (16:00)
[2019-06-07] MEDS ORDERED: ACETAMINOPHEN 325 MG TABLET PO PRN (16:00)
[2019-06-07] MEDS ORDERED: DOCUSATE 100 MG CAPSULE PO PRN (16:00)
[2019-06-07] MEDS ORDERED: ONDANSETRON 2MG/ML, 2ML IVPush PRN (16:00)
[2019-06-07] MEDS ORDERED: POLYETHYLENE GLYCOL 17 GM PACKET PO PRN (16:00)
[2019-06-07] MEDS ORDERED: METOCLOPRAMIDE 5 MG/ML, 2ML IVPush PRN (16:00)
--- NOTE | 2019-06-07 16:20 | NUR ---
Attempted to call report. RN unavailable.
--- NOTE | 2019-06-07 16:38 | NUR ---
Report to FIDEL Lion. VSS.
[2019-06-07] MEDS: HEPARIN 5,000 UNITS/ML, 1ML SQ SCH (18:00)
[2019-06-07 20:07] VITALS: BP 151/71
[2019-06-08 05:04] LABS: BASOPHILS # (AUTO) 0.02 x10^3/uL (0-0.1); BASOPHILS % (AUTO) 0 % (0-1); EOSINOPHILS # (AUTO) 0.08 x10^3/uL (0-0.4); EOSINOPHILS % (AUTO) 2 % (1-7); LYMPHOCYTES # (AUTO) 0.41 x10^3/uL (1-3.4); LYMPHOCYTES % (AUTO) 8 % (22-44); MD NO; MEAN CORPUSCULAR HEMOGLOBIN 31.6 pg (27.0-34.8); MEAN CORPUSCULAR HGB CONC 32.7 g/dL (32.4-35.8); MEAN CORPUSCULAR VOLUME 96.5 fL (80-100); MEAN PLATELET VOLUME 8.4 fL (7.4-10.4); MONOCYTES # (AUTO) 0.41 x10^3/uL (0.2-0.8); MONOCYTES % (AUTO) 8 % (2-9); NEUTROPHILS # (AUTO) 4.08 x10^3/uL (1.8-6.8); NEUTROPHILS % (AUTO) 82 % (42-75); PLATELET COUNT 150 x10^3/uL (130-400); RED CELL DISTRIBUTION WIDTH 14.7 % (9.6-15.2)
[2019-06-08 05:16] LABS: ALBUMIN 3.2 g/dL (3.4-5.0); ANION GAP 6 mmol/L (5-15); CALCIUM 8.8 mg/dL (8.5-10.1); CHLORIDE 105 mmol/L (98-107)
[2019-06-08 05:21] LABS: ALANINE AMINOTRANSFERASE 17 U/L (12-78); ALKALINE PHOSPHATASE 44 U/L (45-117); BILIRUBIN,TOTAL 0.6 mg/dL (0.2-1.0); CREATININE 5.25 mg/dL (0.55-1.02); TOTAL PROTEIN 5.7 g/dL (6.4-8.2)
[2019-06-08 07:14] VITALS: BP 148/75
[2019-06-08] MEDS: HEPARIN 5,000 UNITS/ML, 1ML SQ SCH ×3 (07:45→15:31)
[2019-06-08 13:06] VITALS: BP 156/69
[2019-06-08] MEDS ORDERED: METOCLOPRAMIDE 5 MG/ML, 2ML IVPush PRN (14:36)
[2019-06-08 19:11] VITALS: BP 114/74
[2019-06-08 19:54] VITALS: BP 136/67
[2019-06-09 00:48] VITALS: BP 161/82
[2019-06-09] MEDS ORDERED: ALBUTEROL SULFATE 2.5 MG/3 ML ONE (05:24)
[2019-06-09] MEDS ORDERED: ALBUTEROL SULFATE 2.5 MG/3 ML NPPB PRN (05:30)
[2019-06-09 05:39] LABS: ALBUMIN 3.1 g/dL (3.4-5.0); ANION GAP 5 mmol/L (5-15); CALCIUM 8.8 mg/dL (8.5-10.1); CHLORIDE 102 mmol/L (98-107)
[2019-06-09 07:43] LABS: BASOPHILS # (AUTO) 0.04 x10^3/uL (0-0.1); BASOPHILS % (AUTO) 1 % (0-1); EOSINOPHILS # (AUTO) 0.09 x10^3/uL (0-0.4); EOSINOPHILS % (AUTO) 2 % (1-7); LYMPHOCYTES # (AUTO) 0.33 x10^3/uL (1-3.4); LYMPHOCYTES % (AUTO) 7 % (22-44); MD NO; MEAN CORPUSCULAR HEMOGLOBIN 31.4 pg (27.0-34.8); MEAN CORPUSCULAR HGB CONC 32.8 g/dL (32.4-35.8); MEAN CORPUSCULAR VOLUME 95.6 fL (80-100); MEAN PLATELET VOLUME 8.1 fL (7.4-10.4); MONOCYTES # (AUTO) 0.39 x10^3/uL (0.2-0.8); MONOCYTES % (AUTO) 8 % (2-9); NEUTROPHILS # (AUTO) 3.78 x10^3/uL (1.8-6.8); NEUTROPHILS % (AUTO) 82 % (42-75); PLATELET COUNT 133 x10^3/uL (130-400); RED CELL DISTRIBUTION WIDTH 14.5 % (9.6-15.2)
[2019-06-09 07:47] VITALS: BP 111/49
[2019-06-09] MEDS: HEPARIN 5,000 UNITS/ML, 1ML SQ SCH ×3 (08:00→15:56)
[2019-06-09] MEDS ORDERED: FLUT16SP24 NAS (11:23)
[2019-06-09 13:11] VITALS: BP 138/69
[2019-06-09] MEDS: FLUTICASONE NASAL SPRAY 16GM NAS SCH (15:54)
[2019-06-09 18:48] VITALS: BP 147/64
[2019-06-10 02:54] VITALS: BP 131/62
[2019-06-10 05:17] LABS: BASOPHILS # (AUTO) 0.02 x10^3/uL (0-0.1); BASOPHILS % (AUTO) 1 % (0-1); EOSINOPHILS # (AUTO) 0.11 x10^3/uL (0-0.4); EOSINOPHILS % (AUTO) 3 % (1-7); LYMPHOCYTES # (AUTO) 0.37 x10^3/uL (1-3.4); LYMPHOCYTES % (AUTO) 9 % (22-44); MD NO; MEAN CORPUSCULAR HEMOGLOBIN 31.3 pg (27.0-34.8); MEAN CORPUSCULAR HGB CONC 32.9 g/dL (32.4-35.8); MEAN CORPUSCULAR VOLUME 95.2 fL (80-100); MONOCYTES # (AUTO) 0.44 x10^3/uL (0.2-0.8); MONOCYTES % (AUTO) 11 % (2-9); NEUTROPHILS # (AUTO) 3.12 x10^3/uL (1.8-6.8); NEUTROPHILS % (AUTO) 77 % (42-75); PLATELET COUNT 124 x10^3/uL (130-400); RED BLOOD COUNT 3.38 x10^6/uL (3.82-5.3); RED CELL DISTRIBUTION WIDTH 14.4 % (9.6-15.2)
[2019-06-10 05:24] LABS: CHLORIDE 99 mmol/L (98-107)
[2019-06-10 05:37] LABS: ALANINE AMINOTRANSFERASE 13 U/L (12-78); ALBUMIN 2.9 g/dL (3.4-5.0); ALKALINE PHOSPHATASE 46 U/L (45-117); ANION GAP 6 mmol/L (5-15); BILIRUBIN,TOTAL 0.6 mg/dL (0.2-1.0); CALCIUM 8.7 mg/dL (8.5-10.1); CREATININE 3.12 mg/dL (0.55-1.02); TOTAL PROTEIN 5.8 g/dL (6.4-8.2)
[2019-06-10 07:24] VITALS: BP 156/71
[2019-06-10] MEDS: HEPARIN 5,000 UNITS/ML, 1ML SQ SCH ×3 (08:00→15:53)
[2019-06-10] MEDS: FLUTICASONE NASAL SPRAY 16GM NAS SCH (09:00)
[2019-06-10 12:31] VITALS: BP 131/68
[2019-06-10] MEDS ORDERED: LIDOCAINE 1%, 10ML ONE (19:06)
[2019-06-10 20:01] VITALS: BP 137/55
[2019-06-11 02:10] VITALS: BP 129/62
[2019-06-11 06:20] LABS: BASOPHILS # (AUTO) 0.02 x10^3/uL (0-0.1); BASOPHILS % (AUTO) 0 % (0-1); EOSINOPHILS # (AUTO) 0.08 x10^3/uL (0-0.4); EOSINOPHILS % (AUTO) 2 % (1-7); LYMPHOCYTES # (AUTO) 0.36 x10^3/uL (1-3.4); LYMPHOCYTES % (AUTO) 8 % (22-44); MD NO; MEAN CORPUSCULAR HEMOGLOBIN 31.2 pg (27.0-34.8); MEAN CORPUSCULAR HGB CONC 33.2 g/dL (32.4-35.8); MEAN CORPUSCULAR VOLUME 93.8 fL (80-100); MEAN PLATELET VOLUME 8.3 fL (7.4-10.4); MONOCYTES # (AUTO) 0.33 x10^3/uL (0.2-0.8); MONOCYTES % (AUTO) 8 % (2-9); NEUTROPHILS # (AUTO) 3.66 x10^3/uL (1.8-6.8); NEUTROPHILS % (AUTO) 82 % (42-75); PLATELET COUNT 130 x10^3/uL (130-400); RED BLOOD COUNT 3.54 x10^6/uL (3.82-5.3); RED CELL DISTRIBUTION WIDTH 14.5 % (9.6-15.2)
[2019-06-11 06:31] LABS: CHLORIDE 100 mmol/L (98-107)
[2019-06-11 06:40] LABS: ALANINE AMINOTRANSFERASE 16 U/L (12-78); ALKALINE PHOSPHATASE 43 U/L (45-117); ANION GAP 6 mmol/L (5-15); BILIRUBIN,TOTAL 0.7 mg/dL (0.2-1.0); CREATININE 4.18 mg/dL (0.55-1.02); TOTAL PROTEIN 5.6 g/dL (6.4-8.2)
[2019-06-11 07:25] VITALS: BP 155/68
[2019-06-11] MEDS: HEPARIN 5,000 UNITS/ML, 1ML SQ SCH ×3 (08:00→16:00)
[2019-06-11] MEDS: FLUTICASONE NASAL SPRAY 16GM NAS SCH (09:00)
[2019-06-11] MEDS ORDERED: ACET325T26 PO (12:17)
[2019-06-11] MEDS ORDERED: FLUT16SP24 NAS (12:17)
[2019-06-11 13:17] VITALS: BP 116/52
== END 2019-06-11 17:13 | DRG 291 ==
LOC: ED 15:14 → EDIP 15:15 → ED 15:39 → 3N 17:00
PROVIDERS: ADMIT Internal Medicine; ATTEND Hospitalist
PROC: 0W9B3ZZ Drainage of Left Pleural Cavity, Percutaneous Approach (ICD-10-PCS; 2019-06-07)
PROC: 5A1D70Z Performance of Urinary Filtration, Intermittent, Less than 6 Hours Per Day (ICD-10-PCS; 2019-06-08)
PROC: 5A1D70Z Performance of Urinary Filtration, Intermittent, Less than 6 Hours Per Day (ICD-10-PCS; 2019-06-09)
PROC: 0W9B3ZZ Drainage of Left Pleural Cavity, Percutaneous Approach (ICD-10-PCS; 2019-06-10)
PROC: 5A1D70Z Performance of Urinary Filtration, Intermittent, Less than 6 Hours Per Day (ICD-10-PCS; principal; 2019-06-11)
DX: I13.2 Hypertensive heart and chronic kidney disease with heart failure and with stage 5 chronic kidney disease, or end stage renal disease (principal); N18.6 End stage renal disease; I50.33 Acute on chronic diastolic (congestive) heart failure; I31.3 Pericardial effusion (noninflammatory); J96.10 Chronic respiratory failure, unspecified whether with hypoxia or hypercapnia; E87.70 Fluid overload, unspecified; D63.1 Anemia in chronic kidney disease; N25.0 Renal osteodystrophy; E11.22 Type 2 diabetes mellitus with diabetic chronic kidney disease; E11.51 Type 2 diabetes mellitus with diabetic peripheral angiopathy without gangrene; I48.91 Unspecified atrial fibrillation; J44.9 Chronic obstructive pulmonary disease, unspecified; Z82.49 Family history of ischemic heart disease and other diseases of the circulatory system; Z82.5 Family history of asthma and other chronic lower respiratory diseases; Z83.3 Family history of diabetes mellitus; Z90.710 Acquired absence of both cervix and uterus; Z99.2 Dependence on renal dialysis; Z90.49 Acquired absence of other specified parts of digestive tract; Z79.84 Long term (current) use of oral hypoglycemic drugs
CPT/HCPCS: 32555; 36415; 71045; 71275; 80053; 80069; 82150; 82945; 83605; 83615; 83735; 83880; 83986; 84100; 84157; 84484; 85025; 85379; 86705; 86706; 87040; 87070; 87205; 87340; 89051; 90935; 93005; 94640; G0378; J1644; J1940; Q9967

== ENCOUNTER 2019-08-03 08:42 | Inpatient (IN) | payer MEDICARE ==
[~2019-08-03] VITALS: Ht 172.7 cm; Wt 67.4 kg
[~2019-08-03 08:42] MED LIST changes: +ACET325T26 PO; +FLUT16SP24 NAS
--- NOTE | 2019-08-03 08:42 | NUR ---
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
--- NOTE | 2019-08-03 09:02 | NUR ---
PT UPRIGHT ON GURNEY WITH EYES CLOSED, RESPONDS APPROP TO STAFF, NAD AT REST, COMFORT MEASURES PROVIDED, CALL LIGHT WITHIN REACH.
[2019-08-03 09:25] LABS: BASOPHILS # (AUTO) 0.04 x10^3/uL (0-0.1); BASOPHILS % (AUTO) 0 % (0-1); EOSINOPHILS # (AUTO) 0.04 x10^3/uL (0-0.4); EOSINOPHILS % (AUTO) 1 % (1-7); LYMPHOCYTES # (AUTO) 0.32 x10^3/uL (1-3.4); LYMPHOCYTES % (AUTO) 4 % (22-44); MD NO; MEAN CORPUSCULAR HEMOGLOBIN 30.8 pg (27.0-34.8); MEAN CORPUSCULAR HGB CONC 32.7 g/dL (32.4-35.8); MEAN CORPUSCULAR VOLUME 94.3 fL (80-100); MEAN PLATELET VOLUME 8.4 fL (7.4-10.4); MONOCYTES # (AUTO) 0.34 x10^3/uL (0.2-0.8); MONOCYTES % (AUTO) 4 % (2-9); NEUTROPHILS # (AUTO) 8.55 x10^3/uL (1.8-6.8); NEUTROPHILS % (AUTO) 92 % (42-75); PLATELET COUNT 153 x10^3/uL (130-400); RED BLOOD COUNT 3.72 x10^6/uL (3.82-5.3); RED CELL DISTRIBUTION WIDTH 14.9 % (9.6-15.2)
[2019-08-03] MEDS ORDERED: NAPR220C2 PO (09:26)
[2019-08-03 09:28] LABS: CHLORIDE 105 mmol/L (98-107)
--- NOTE | 2019-08-03 09:34 | NUR ---
PT REFUSED RLE US DESPITE DR AMAYA EXTENSIVE DISCUSSION FOR NECESSITY INCLUDING REFUSAL OF PAIN MEDS, AGREEABLE TO CT.
--- NOTE | 2019-08-03 10:01 | NUR ---
PT REMAINS UPRIGHT ON GURNEY WITH EYES CLOSED, RESPONDS APPROP TO STAFF, NAD, COMFORT MEASURES PROVIDED, CALL LIGHT WITHIN REACH.
[2019-08-03 10:48] LABS: ANION GAP 14 mmol/L (5-15); CALCIUM 8.7 mg/dL (8.5-10.1); CREATININE 5.12 mg/dL (0.55-1.02)
--- NOTE | 2019-08-03 11:00 | NUR ---
PT UPRIGHT ON GURNEY WITH EYES CLOSED, ABLE TO DOZE OFF EASILY, RESPONDS APPROP TO STAFF, NAD, COMFORT MEASURES PROVIDED, CALL LIGHT WITHIN REACH.
[2019-08-03 11:03] LABS: ALBUMIN 3.1 g/dL (3.4-5.0)
--- NOTE | 2019-08-03 11:30 | NUR ---
SPOKE WITH [facility] STAFF (AMY)- CONFIRMED PT HX ESRD WITH DIALYSIS MWF BUT REFUSED TX 08/02/19 BECAUSE "SHE STATED SHE DOES NOT HAVE DIALYSIS"- DR AMAYA AWARE.
--- NOTE | 2019-08-03 12:01 | NUR ---
PT UPRIGHT ON GURNEY MOSTLY SLEEPING, RESPONDS APPROP TO STAFF, NAD, COMFORT MEASURES PROVIDED, CALL LIGHT WITHIN REACH.
[2019-08-03] MEDS ORDERED: AMPICILLIN/SULBACTAM 3 GM in SODIUM CHLORIDE 0.9% 100 ML IV ONE (12:30)
--- NOTE | 2019-08-03 13:11 | NUR ---
BREAK RN: IV ABX INITIATED, DISCUSSED WITH DR. AMAYA AND CONSUELO ROD- NO BLOOD CULTURES NEEDED AT THIS TIME PRIOR TO ABX. PT MADE AWARE OF PLAN.
[2019-08-03] MEDS ORDERED: OMNIPAQUE 350 MG/ML, 150 ML BOTTLE ONE (13:52)
--- NOTE | 2019-08-03 14:02 | NUR ---
PT [place], RESPONDS APPROP TO STAFF, NAD, COMFORT MEASURES PROVIDED, CALL LIGHT WITHIN REACH.
[2019-08-03] MEDS ORDERED: PHARMACY MAY ADJ FOR RENAL FX MC PRN (15:00)
[2019-08-03] MEDS ORDERED: DOCUSATE 100 MG CAPSULE PO PRN (15:00)
[2019-08-03] MEDS ORDERED: BISACODYL 10 MG SUPP PR PRN (15:00)
--- NOTE | 2019-08-03 15:00 | NUR ---
PT UPRIGHT ON GURNEY MOSTLY SLEEPING, RESPONDS APPROP TO STAFF, NAD, COMFORT MEASURES PROVIDED, CALL LIGHT WITHIN REACH.
--- NOTE | 2019-08-03 15:58 | NUR ---
[place], RESPONDS APPROP TO STAFF, NAD, COMFORT MEASURES PROVIDED, CALL LIGHT WITHIN REACH.
[2019-08-03] MEDS ORDERED: PIPERACILLIN/TAZO/PMX 3.375GM 50 ML ONE (16:54)
[2019-08-03] MEDS: PIPERACILLIN/TAZO/PMX 3.375GM 50 ML IV SCH ×2 (17:00→23:28)
--- NOTE | 2019-08-03 17:06 | NUR ---
Pt to be admitted to [facility], room 489. Report called to
[2019-08-03 17:17] VITALS: BP 166/78
[2019-08-03 17:28] VITALS: BP 178/67
[2019-08-03] MEDS: HEPARIN 5,000 UNITS/ML, 1ML SQ SCH (17:56)
[2019-08-03 19:22] VITALS: BP 169/84
[2019-08-03 23:36] VITALS: BP 152/74
[2019-08-03] MEDS: ATORVASTATIN 40 MG TABLET PO SCH (23:44)
[2019-08-04 02:06] VITALS: BP 155/61
[2019-08-04] MEDS: HEPARIN 5,000 UNITS/ML, 1ML SQ SCH ×5 (05:24→21:20)
[2019-08-04] MEDS: PIPERACILLIN/TAZO/PMX 3.375GM 50 ML IV SCH (05:24)
[2019-08-04] MEDS: ASPIRIN 81 MG TABLET EC PO SCH ×2 (05:24→05:29)
[2019-08-04] MEDS ORDERED: ASPIRIN 325 MG TABLET PO SCH (06:00)
[2019-08-04 06:05] LABS: ALBUMIN 2.9 g/dL (3.4-5.0); ANION GAP 8 mmol/L (5-15); CALCIUM 8.8 mg/dL (8.5-10.1); CHLORIDE 106 mmol/L (98-107)
[2019-08-04 06:10] LABS: ALANINE AMINOTRANSFERASE 23 U/L (12-78); ALKALINE PHOSPHATASE 64 U/L (45-117); CREATININE 3.07 mg/dL (0.55-1.02); TOTAL PROTEIN 6.2 g/dL (6.4-8.2)
[2019-08-04 06:12] LABS: BASOPHILS # (AUTO) 0.02 x10^3/uL (0-0.1); BASOPHILS % (AUTO) 0 % (0-1); EOSINOPHILS # (AUTO) 0.05 x10^3/uL (0-0.4); EOSINOPHILS % (AUTO) 1 % (1-7); LYMPHOCYTES # (AUTO) 0.26 x10^3/uL (1-3.4); LYMPHOCYTES % (AUTO) 4 % (22-44); MD NO; MEAN CORPUSCULAR HEMOGLOBIN 31.7 pg (27.0-34.8); MEAN CORPUSCULAR HGB CONC 33.6 g/dL (32.4-35.8); MEAN CORPUSCULAR VOLUME 94.6 fL (80-100); MEAN PLATELET VOLUME 8.5 fL (7.4-10.4); MONOCYTES % (AUTO) 5 % (2-9); NEUTROPHILS # (AUTO) 5.92 x10^3/uL (1.8-6.8); NEUTROPHILS % (AUTO) 90 % (42-75); PLATELET COUNT 154 x10^3/uL (130-400); RED BLOOD COUNT 3.32 x10^6/uL (3.82-5.3); RED CELL DISTRIBUTION WIDTH 14.6 % (9.6-15.2)
[2019-08-04 06:33] VITALS: BP 152/70
[2019-08-04] MEDS: CARVEDILOL 6.25 MG TABLET PO SCH ×2 (08:28→17:44)
[2019-08-04] MEDS ORDERED: ATOR40TA78 PO (10:38)
[2019-08-04] MEDS ORDERED: ASPI81TA45 PO (10:38)
[2019-08-04] MEDS ORDERED: CARV6.2512 PO (10:38)
[2019-08-04 12:36] VITALS: BP 138/67
[2019-08-04 19:40] VITALS: BP 157/69
[2019-08-04] MEDS: ATORVASTATIN 40 MG TABLET PO SCH (21:20)
[2019-08-05 00:08] VITALS: BP 157/75
[2019-08-05 03:16] VITALS: BP 149/77
[2019-08-05] MEDS: ASPIRIN 81 MG TABLET EC PO SCH ×2 (05:37→06:00)
[2019-08-05] MEDS: CARVEDILOL 6.25 MG TABLET PO SCH ×3 (05:37→18:00)
[2019-08-05] MEDS: HEPARIN 5,000 UNITS/ML, 1ML SQ SCH ×3 (06:00→20:08)
[2019-08-05 06:02] LABS: BASOPHILS # (AUTO) 0.04 x10^3/uL (0-0.1); BASOPHILS % (AUTO) 1 % (0-1); EOSINOPHILS # (AUTO) 0.06 x10^3/uL (0-0.4); EOSINOPHILS % (AUTO) 1 % (1-7); LYMPHOCYTES # (AUTO) 0.36 x10^3/uL (1-3.4); LYMPHOCYTES % (AUTO) 4 % (22-44); MD NO; MEAN CORPUSCULAR HEMOGLOBIN 30.8 pg (27.0-34.8); MEAN CORPUSCULAR HGB CONC 32.3 g/dL (32.4-35.8); MEAN CORPUSCULAR VOLUME 95.2 fL (80-100); MEAN PLATELET VOLUME 8.1 fL (7.4-10.4); MONOCYTES # (AUTO) 0.54 x10^3/uL (0.2-0.8); MONOCYTES % (AUTO) 6 % (2-9); NEUTROPHILS # (AUTO) 8.22 x10^3/uL (1.8-6.8); NEUTROPHILS % (AUTO) 89 % (42-75); PLATELET COUNT 175 x10^3/uL (130-400); RED BLOOD COUNT 3.72 x10^6/uL (3.82-5.3); RED CELL DISTRIBUTION WIDTH 14.7 % (9.6-15.2)
[2019-08-05 06:54] VITALS: BP 172/79
[2019-08-05 13:33] VITALS: BP 152/74
[2019-08-05] MEDS: ATORVASTATIN 40 MG TABLET PO SCH (20:08)
[2019-08-05 20:23] VITALS: BP 127/69
[2019-08-06 06:47] VITALS: BP 146/70
[2019-08-06] MEDS: CARVEDILOL 6.25 MG TABLET PO SCH ×2 (08:00→18:17)
[2019-08-06] MEDS: HEPARIN 5,000 UNITS/ML, 1ML SQ SCH ×3 (08:00→23:42)
[2019-08-06] MEDS: ASPIRIN 81 MG TABLET EC PO SCH (13:12)
[2019-08-06 13:33] VITALS: BP 104/62
[2019-08-06] MEDS: ATORVASTATIN 40 MG TABLET PO SCH (21:00)
[2019-08-07] MEDS: CARVEDILOL 6.25 MG TABLET PO SCH ×2 (05:42→17:26)
[2019-08-07] MEDS: ASPIRIN 81 MG TABLET EC PO SCH (05:42)
[2019-08-07] MEDS: HEPARIN 5,000 UNITS/ML, 1ML SQ SCH ×3 (08:00→23:36)
[2019-08-07 08:39] VITALS: BP 132/62
[2019-08-07 20:02] VITALS: BP 145/61
[2019-08-07] MEDS: ATORVASTATIN 40 MG TABLET PO SCH (20:43)
[2019-08-08] MEDS: ASPIRIN 81 MG TABLET EC PO SCH (05:06)
[2019-08-08] MEDS: CARVEDILOL 6.25 MG TABLET PO SCH ×2 (05:06→17:52)
[2019-08-08] MEDS: HEPARIN 5,000 UNITS/ML, 1ML SQ SCH ×2 (08:00→16:00)
[2019-08-08 19:42] VITALS: BP 128/64
[2019-08-08] MEDS: ATORVASTATIN 40 MG TABLET PO SCH (21:00)
[2019-08-09] MEDS: ASPIRIN 81 MG TABLET EC PO SCH (05:34)
[2019-08-09] MEDS: CARVEDILOL 6.25 MG TABLET PO SCH (05:34)
[2019-08-09] MEDS: HEPARIN 5,000 UNITS/ML, 1ML SQ SCH ×2 (08:00)
[2019-08-09] MEDS ORDERED: HEPA50002 SQ (11:04)
== END 2019-08-09 14:08 | DRG 602 ==
LOC: ED 10:19 → EDIP 13:23 → 4EST 17:05
PROVIDERS: ADMIT Internal Medicine; ATTEND Hospitalist
PROC: 5A1D70Z Performance of Urinary Filtration, Intermittent, Less than 6 Hours Per Day (ICD-10-PCS; principal; 2019-08-03)
PROC: 5A1D70Z Performance of Urinary Filtration, Intermittent, Less than 6 Hours Per Day (ICD-10-PCS; 2019-08-06)
PROC: 5A1D70Z Performance of Urinary Filtration, Intermittent, Less than 6 Hours Per Day (ICD-10-PCS; 2019-08-09)
DX: L03.115 Cellulitis of right lower limb (principal); N18.6 End stage renal disease; G92 Toxic encephalopathy; J96.10 Chronic respiratory failure, unspecified whether with hypoxia or hypercapnia; D68.69 Other thrombophilia; I13.2 Hypertensive heart and chronic kidney disease with heart failure and with stage 5 chronic kidney disease, or end stage renal disease; L97.919 Non-pressure chronic ulcer of unspecified part of right lower leg with unspecified severity; E87.70 Fluid overload, unspecified; D63.1 Anemia in chronic kidney disease; I48.91 Unspecified atrial fibrillation; E11.22 Type 2 diabetes mellitus with diabetic chronic kidney disease; E11.51 Type 2 diabetes mellitus with diabetic peripheral angiopathy without gangrene; E78.00 Pure hypercholesterolemia, unspecified; E78.5 Hyperlipidemia, unspecified; E89.0 Postprocedural hypothyroidism; F03.90 Unspecified dementia, unspecified severity, without behavioral disturbance, psychotic disturbance, mood disturbance, and anxiety; I35.0 Nonrheumatic aortic (valve) stenosis; I48.0 Paroxysmal atrial fibrillation; I50.9 Heart failure, unspecified; J44.9 Chronic obstructive pulmonary disease, unspecified; R53.81 Other malaise; I70.211 Atherosclerosis of native arteries of extremities with intermittent claudication, right leg; Z79.84 Long term (current) use of oral hypoglycemic drugs; Z82.49 Family history of ischemic heart disease and other diseases of the circulatory system; Z83.3 Family history of diabetes mellitus; Z82.5 Family history of asthma and other chronic lower respiratory diseases; Z87.891 Personal history of nicotine dependence; Z90.710 Acquired absence of both cervix and uterus; Z91.15 Patient's noncompliance with renal dialysis; Z91.19 Patient's noncompliance with other medical treatment and regimen; Z99.2 Dependence on renal dialysis; Z99.81 Dependence on supplemental oxygen
CPT/HCPCS: 36415; 75635; 80048; 80053; 82040; 83036; 84100; 85025; 86706; 87340; 90935; 96365; G0378; J0295; J1644; J2543; Q9967